=== PATIENT | male | born 1990 | race Two or more races ===

== ENCOUNTER 2024-11-14 15:35 | Emergency (ER) | payer OTHER ==
[~2024-11-14] VITALS: Ht 182.9 cm; Wt 77.1 kg
[2024-11-14 15:58] VITALS: BP 138/73; O2SAT 98
[2024-11-14] MEDS ORDERED: GENTAMICIN SULFA5 ML OTIC (16:32)
[2024-11-14] MEDS ORDERED: CIPROFLOX-DEXA7.5 ML OT (16:33)
== END 2024-11-14 16:51 | disposition home or self-care (01) ==
LOC: ER 15:36
DX: H66.91 Otitis media, unspecified, right ear (principal)